=== PATIENT | male | born 1985 | race Caucasian/White ===

== ENCOUNTER 2023-08-02 11:44 | Emergency (ER) | payer OTHER ==
[~2023-08-02] VITALS: Ht 180.3 cm; Wt 111.4 kg
[2023-08-02 11:52] VITALS: BP 151/88; TEMP 98.2
[2023-08-02 12:43] VITALS: PULSE 75
== END 2023-08-02 12:44 | disposition home or self-care (01) ==
LOC: COL.ER 11:44
DX: S61.112A Laceration without foreign body of left thumb with damage to nail, initial encounter (principal); W26.0XXA Contact with knife, initial encounter